=== PATIENT | female | born 1985 | race Caucasian/White ===

== ENCOUNTER → 2017-01-28 | Outpatient (CLI) | payer OTHER ==
[~2017-01-28] MED LIST: ALBU8.5H5 INH; DICY10CA3 PO; ESCI20TA10 PO; ETON68IM3 SUBD; HYDR-3307 PO; IBUP-1221 PO; METH4TAB2 PO; METH750T87 PO; NORE1TAB85 PO; ONDA4TAB7 PO; OXYC-302 PO; SERT50TA PO; immodium PO
[2017-01-28 15:51] LABS: HEMATOCRIT 45.9 % (34.6-47.8); HEMOGLOBIN 15.7 g/dL (11.7-16.4); WHITE BLOOD COUNT 8.6 x10^3/uL (3.4-10)
[2017-01-28 16:03] LABS: BLOOD UREA NITROGEN 10 mg/dL (7-18)
[2017-01-28 16:08] LABS: ASPARTATE AMINO TRANSFERASE 17 U/L (15-37)
== END | disposition home or self-care (01) ==
LOC: STAR 14:55
PROVIDERS: ATTEND Neurological Surgery
DX: Z01.818 Encounter for other preprocedural examination (principal); R79.1 Abnormal coagulation profile
CPT/HCPCS: 36415; 71020; 80053; 84703; 85025; 85610; 85730; 93005

== ENCOUNTER → 2017-04-24 | Outpatient (CLI) | payer OTHER | END | disposition home or self-care (01) | LOC: CFH 13:55 | PROVIDERS: ATTEND Neurological Surgery | DX: M41.86 Other forms of scoliosis, lumbar region (principal); M41.82 Other forms of scoliosis, cervical region; M51.36 Other intervertebral disc degeneration, lumbar region | CPT/HCPCS: 72050; 72110; 72148 ==

== ENCOUNTER 2019-05-06 10:47 | Day surgery (SDC) | payer OTHER ==
[~2019-05-06] VITALS: Ht 165.1 cm; Wt 96.0 kg
[~2019-05-06 10:47] MED LIST changes: -HYDR-3307 PO; +HYDR-36 PO
[2019-05-06 11:22] VITALS: BP 125/82
[2019-05-06] MEDS ORDERED: SODIUM CHLORIDE 0.9% 1,000 ML IV SCH (11:25)
[2019-05-06] MEDS ORDERED: OMNIPAQUE 300 MG/ML, 10ML VIAL ONE (13:00)
[2019-05-06] MEDS ORDERED: LIDOCAINE-MPF 1%, 5ML ONE ×2 (13:55→14:28)
== END 2019-05-06 17:15 | disposition home or self-care (01) ==
LOC: OUT 10:47
PROVIDERS: ATTEND Neurological Surgery
DX: R51 Headache (principal); M54.5 Low back pain; M41.82 Other forms of scoliosis, cervical region; M50.122 Cervical disc disorder at C5-C6 level with radiculopathy; Z79.1 Long term (current) use of non-steroidal anti-inflammatories (NSAID); Z79.899 Other long term (current) drug therapy; Z88.0 Allergy status to penicillin; Z88.8 Allergy status to other drugs, medicaments and biological substances; Z98.1 Arthrodesis status; Z98.890 Other specified postprocedural states
CPT/HCPCS: 62284; 72126; Q9967

== ENCOUNTER 2019-05-16 10:10 | Emergency (ER) | payer OTHER ==
[~2019-05-16] VITALS: Ht 165.1 cm; Wt 96.2 kg
[2019-05-16 10:57] LABS: BASOPHILS # (AUTO) 0.02 x10^3/uL (0-0.1); BASOPHILS % (AUTO) 0 % (0-1); EOSINOPHILS # (AUTO) 0.32 x10^3/uL (0-0.4); EOSINOPHILS % (AUTO) 4 % (1-7); LYMPHOCYTES # (AUTO) 1.99 x10^3/uL (1-3.4); LYMPHOCYTES % (AUTO) 24 % (22-44); MD NO; MEAN CORPUSCULAR HEMOGLOBIN 31.3 pg (27.0-34.8); MEAN CORPUSCULAR HGB CONC 33.6 g/dL (32.4-35.8); MEAN CORPUSCULAR VOLUME 93.1 fL (80-100); MEAN PLATELET VOLUME 8.3 fL (7.4-10.4); MONOCYTES # (AUTO) 0.38 x10^3/uL (0.2-0.8); MONOCYTES % (AUTO) 5 % (2-9); NEUTROPHILS # (AUTO) 5.65 x10^3/uL (1.8-6.8); NEUTROPHILS % (AUTO) 68 % (42-75); PLATELET COUNT 371 x10^3/uL (130-400); RED BLOOD COUNT 5.22 x10^6/uL (3.82-5.3); RED CELL DISTRIBUTION WIDTH 12.7 % (9.6-15.2)
[2019-05-16 11:01] LABS: ANION GAP 6 mmol/L (5-15); CALCIUM 8.7 mg/dL (8.5-10.1); CHLORIDE 107 mmol/L (98-107); CREATININE 0.78 mg/dL (0.55-1.02)
[2019-05-16] MEDS ORDERED: KETOROLAC 30 MG/1 ML IVPush ONE (11:30)
[2019-05-16] MEDS ORDERED: PROCHLORPERAZINE 5 MG/ML, 2ML IVPush ONE (11:30)
[2019-05-16] MEDS ORDERED: SODIUM CHLORIDE FLUSH 10ML SYR IVF ONE (11:30)
[2019-05-16] MEDS ORDERED: DIPHENHYDRAMINE 50 MG/ML, 1ML IVPush ONE (11:30)
[2019-05-16] MEDS ORDERED: PROCHLORPERAZINE 5 MG/ML, 2ML ONE (11:44)
[2019-05-16] MEDS ORDERED: DIPHENHYDRAMINE 50 MG/ML, 1ML ONE (11:44)
[2019-05-16] MEDS ORDERED: KETOROLAC 30 MG/1 ML ONE (11:44)
--- NOTE | 2019-05-16 12:08 | NUR ---
IV ACCESS IS PROVING DIFFICULT. ULTRASOUND LINE REQUESTED. PT DENIES ANY CURRENT NEEDS OR CONCERNS, CALL LIGHT IN REACH.
[2019-05-16 13:45] VITALS: BP 123/79
== END 2019-05-16 13:47 | disposition home or self-care (01) ==
LOC: ED 10:51
DX: R51 Headache (principal); K21.9 Gastro-esophageal reflux disease without esophagitis
CPT/HCPCS: 36415; 80048; 84703; 85025; 96374; 96375; 99283; J0780; J1200; J1885